=== PATIENT | female | born 1955 | race Asian ===

== ENCOUNTER 2021-11-15 20:45 | Emergency (ER) | payer OTHER ==
[~2021-11-15] VITALS: Ht 149.9 cm; Wt 52.2 kg
[2021-11-15 20:50] VITALS: BP_SYST 157
--- NOTE | 2021-11-15 21:30 | NUR ---
Patient ambulatory to bed 3 for evaluation and treatment
[2021-11-15] MEDS ORDERED: LIDOCAINE VISCOUS 2%, 15 ML UDC ONE (22:30)
[2021-11-15] MEDS ORDERED: BACITRACIN ZINC 15 GM TOPICAL OINTMENT TP ONE (22:30)
[2021-11-15] MEDS ORDERED: LIDOCAINE VISCOUS 2%, 15 ML UDC MM ONE (22:30)
[2021-11-15] MEDS ORDERED: OXYMETAZOLINE HCL 0.05% NASAL SPRAY NS PRN (22:30)
[2021-11-15] MEDS ORDERED: OXYMETAZOLINE HCL 0.05% NASAL SPRAY NS ONE (22:31)
[2021-11-15] MEDS ORDERED: BACITRACIN 1 GM OINT TP ONE (22:32)
[2021-11-15] MEDS ORDERED: SILVER NITRATE APPLICATOR 1 STICK STICK..EA. TP ONE (22:47)
[2021-11-15] MEDS ORDERED: AUG875 PO (23:04)
--- NOTE | 2021-11-15 23:45 | NUR ---
Patient given written and verbal discharge instructions and verbalizes understanding. ER MD discussed with patient the results and treatment provided. Patient in stable condition. ID arm band removed. IV catheter removed intact and dressing applied, no active bleeding. Rx of AUGMENTIN given. Patient educated on pain management and to follow up with PMD. Pain Scale . Opportunity for questions provided and answered. Medication side effect fact sheet provided.
[2021-11-16 00:44] VITALS: BP_SYST 128
== END 2021-11-15 23:44 | disposition home or self-care (01) ==
LOC: SED 20:45
DX: R04.0 Epistaxis (principal)
CPT/HCPCS: 30901; 99284; J2001

== ENCOUNTER 2021-11-18 19:42 | Emergency (ER) | payer OTHER ==
[~2021-11-18] VITALS: Ht 152.4 cm; Wt 63.5 kg
[~2021-11-18 19:42] MED LIST: AUG875 PO
[2021-11-18 19:55] VITALS: BP_SYST 138
--- NOTE | 2021-11-18 19:55 | NUR ---
ER Dr. Goff in triage examining patient.
--- NOTE | 2021-11-18 20:00 | NUR ---
Patent brought in complaining of rhino rocket removal to the left nostril that was placed on 11/15/21. Patient was placed on augmentin for 5 days. No bleeding noted at this time.
[2021-11-18] MEDS ORDERED: AUG875 PO (20:42)
[2021-11-18 21:05] VITALS: BP_SYST 138
--- NOTE | 2021-11-18 21:05 | NUR ---
Patient given written and verbal discharge instructions and verbalizes understanding. ER MD discussed with patient the results and treatment provided. Patient in stable condition. ID arm band removed. Rx of augmentin given. Patient educated on pain management and to follow up with PMD. Pain Scale 0/10 Opportunity for questions provided and answered. Medication side effect fact sheet provided.
== END 2021-11-18 21:05 | disposition home or self-care (01) ==
LOC: SED 19:42
DX: R04.0 Epistaxis (principal); Z48.00 Encounter for change or removal of nonsurgical wound dressing; Z79.899 Other long term (current) drug therapy
CPT/HCPCS: 99283

== ENCOUNTER 2022-09-05 20:52 | Inpatient (IN) | payer OTHER ==
[~2022-09-05] VITALS: Ht 154.9 cm; Wt 49.9 kg
[2022-09-05 21:47] VITALS: BP_SYST 130
[2022-09-05] MEDS ORDERED: NACL 0.9% 1,000 ML IV ONE ×2 (22:00→23:15)
[2022-09-05 22:31] LABS: HEMATOCRIT 36.9 % (36-48); HEMOGLOBIN 12.4 g/dL (12.0-16.0); MEAN CORPUSCULAR HEMOGLOBIN 31 pg (27-31); MEAN CORPUSCULAR HGB CONC 34 % (32-36); MEAN CORPUSCULAR VOLUME 91 fL (79.0-98.0); PLATELET COUNT (AUTO) 201 K/uL (130-430); RED BLOOD CELL COUNT(AUTO) 4.04 MIL/uL (4.2-6.2); RED CELL DISTRIBUTION WIDTH 12.6 % (9.0-15.0); WHITE BLOOD COUNT (AUTO) 14.2 K/uL (4.8-10.8)
[2022-09-05 22:46] LABS: ANION GAP 9 (5-15); CALCIUM 8.4 mg/dL (8.4-11.0); CHLORIDE 96 mmol/L (98-107); CREATININE 0.96 mg/dL (0.55-1.30); GFR AFRICAN AMERICAN 74 mL/min (>90); GLUCOSE 136 mg/dL (70-99); UREA NITROGEN, BLOOD 18 mg/dL (8-21)
[2022-09-05 22:58] LABS: ALANINE AMINOTRANSFERASE 32 U/L (12-78); ALBUMIN 3.2 g/dL (3.4-4.8); ASPARTATE AMINOTRANSFERASE 27 U/L (10-37)
[2022-09-05 23:35] LABS: BAND % (MANUAL) 28 % (0-6); BASOPHILS % (MANUAL) 0 % (0-2); EOSINOPHILS % (MANUAL) 0 % (0-7); LYMPHOCYTES % (MANUAL) 5 % (20-46); MONOCYTES % (MANUAL) 4 % (0-11)
[2022-09-05 23:37] LABS: PHOSPHORUS 4.3 mg/dL (2.7-4.5)
[2022-09-05 23:56] LABS: BILIRUBIN,URINE NEGATIVE (NEGATIVE); BLOOD, URINE 1+ (NEGATIVE); CLARITY/URINE CLOUDY (CLEAR); COLOR,URINE YELLOW (YELLOW); GLUCOSE,URINE NEGATIVE (NEGATIVE); KETONES,URINE NEGATIVE (NEGATIVE); LEUKOCYTE ESTERASE ,URINE 3+ (NEGATIVE); NITRITE, URINE POSITIVE (NEGATIVE); PH,URINE 6.5 (5.0-8.0); PROTEIN URINE 1+ (NEGATIVE); UROBILINOGEN,URINE 0.2 (0.2-1.0)
[2022-09-06] MEDS ORDERED: cefTRIAXone 1 GM in D5W 50 ML IV ONE (00:30)
[2022-09-06] MEDS ORDERED: cefTRIAXone 1 GM VIAL ONE (01:15)
[2022-09-06] MEDS ORDERED: ONDANSETRON HCL 4 MG/2 ML VIAL IVP ONE (02:15)
[2022-09-06] MEDS ORDERED: hydrALAZINE HCL 20 MG/ML VIAL IVP ONE (02:15)
[2022-09-06] MEDS ORDERED: CLOP75TA32 PO (02:29)
[2022-09-06] MEDS ORDERED: HYDR12.55 PO (02:29)
[2022-09-06] MEDS ORDERED: NOR10 PO (02:29)
[2022-09-06] MEDS ORDERED: LIP20 PO (02:29)
[2022-09-06] MEDS ORDERED: OLME20TA74 PO (02:29)
[2022-09-06 04:04] VITALS: BP_SYST 128
[2022-09-06 08:00] VITALS: BP_SYST 115
[2022-09-06] MEDS ORDERED: HYDROcodone/ACETAMIN 5-325 MG TAB (NORCO/ VICODIN) PO PRN (10:45)
[2022-09-06] MEDS ORDERED: NALOXONE HCL 0.4 MG/ML AMP (NARCAN) IVP PRN ×2 (10:45)
[2022-09-06] MEDS ORDERED: OLMESARTAN MEDOXOMIL 20 MG TABLET PO SCH (10:45)
[2022-09-06] MEDS ORDERED: ONDANSETRON HCL 4 MG/2 ML VIAL IVP PRN (10:45)
[2022-09-06] MEDS ORDERED: LORazepam 2 MG/ML VIAL IVP PRN (10:45)
[2022-09-06] MEDS ORDERED: HYDROcodone/ACETAMIN 10-325 MG TAB PO PRN (10:45)
[2022-09-06] MEDS ORDERED: NON-FORMULARY MEDICATION (Hydrochlorothiazide 12.5 MG) PO SCH (10:45)
[2022-09-06] MEDS ORDERED: CLOPIDOGREL BISULFATE 75 MG TABLET PO ONE (11:00)
[2022-09-06] MEDS ORDERED: amLODIPine BESYLATE 10 MG TABLET PO ONE (11:00)
[2022-09-06] MEDS ORDERED: ACETAMINOPHEN 325 MG TABLET PO PRN (11:00)
[2022-09-06 11:07] LABS: BASOPHILS % (AUTO) 0.1 % (0.0-2.0); HEMATOCRIT 36.4 % (36-48); HEMOGLOBIN 12.2 g/dL (12.0-16.0); LYMPHOCYTES # (AUTO) 0.7 K/uL (1.0-5.5); LYMPHOCYTES % (AUTO) 4.6 % (20.5-51.5); MEAN CORPUSCULAR HEMOGLOBIN 31 pg (27-31); MEAN CORPUSCULAR HGB CONC 34 % (32-36); MEAN CORPUSCULAR VOLUME 91 fL (79.0-98.0); MONOCYTES # (AUTO) 0.7 K/uL (0.0-1.0); NEUTROPHILS # (AUTO) 13.5 K/uL (1.8-7.7); NEUTROPHILS % (AUTO) 90.3 % (40.0-70.0); PLATELET COUNT (AUTO) 195 K/uL (130-430); RED BLOOD CELL COUNT(AUTO) 3.98 MIL/uL (4.2-6.2); RED CELL DISTRIBUTION WIDTH 12.3 % (9.0-15.0); WHITE BLOOD COUNT (AUTO) 14.9 K/uL (4.8-10.8)
[2022-09-06 11:13] LABS: CALCIUM 8.2 mg/dL (8.4-11.0); CREATININE 1.32 mg/dL (0.55-1.30)
[2022-09-06 11:34] VITALS: BP_SYST 99
[2022-09-06] MEDS: cefTRIAXone 1 GM IVPB PREMIX 50 ML IV SCH (12:26)
[2022-09-06] MEDS: NORMAL SALINE 5 ML DISP.SYRIN IVF SCH ×2 (13:12→20:15)
[2022-09-06] MEDS ORDERED: NORMAL SALINE 5 ML DISP.SYRIN IVF SCH (14:00)
[2022-09-06 17:03] VITALS: BP_SYST 130
[2022-09-06 20:00] VITALS: BP_SYST 121
[2022-09-06] MEDS: ATORVASTATIN 20 MG TABLET PO SCH (20:14)
[2022-09-07] VITALS (7 sets, daily range): BP systolic 100–145
[2022-09-07] MEDS: NORMAL SALINE 5 ML DISP.SYRIN IVF SCH ×3 (06:00→22:00)
[2022-09-07 07:37] LABS: BASOPHILS % (AUTO) 0.1 % (0.0-2.0); HEMATOCRIT 35.9 % (36-48); HEMOGLOBIN 11.9 g/dL (12.0-16.0); LYMPHOCYTES # (AUTO) 0.8 K/uL (1.0-5.5); LYMPHOCYTES % (AUTO) 5.7 % (20.5-51.5); MEAN CORPUSCULAR HEMOGLOBIN 30 pg (27-31); MEAN CORPUSCULAR HGB CONC 33 % (32-36); MEAN CORPUSCULAR VOLUME 91 fL (79.0-98.0); MONOCYTES % (AUTO) 6.8 % (1.7-9.3); NEUTROPHILS # (AUTO) 12.4 K/uL (1.8-7.7); NEUTROPHILS % (AUTO) 87.4 % (40.0-70.0); PLATELET COUNT (AUTO) 185 K/uL (130-430); RED BLOOD CELL COUNT(AUTO) 3.95 MIL/uL (4.2-6.2); RED CELL DISTRIBUTION WIDTH 12.6 % (9.0-15.0); WHITE BLOOD COUNT (AUTO) 14.2 K/uL (4.8-10.8)
[2022-09-07 07:56] LABS: ALBUMIN 2.5 g/dL (3.4-4.8); C-REACTIVE PROTEIN QUANT 35.5 mg/dL (0-0.5); CALCIUM 8.1 mg/dL (8.4-11.0); CREATININE 0.95 mg/dL (0.55-1.30); PHOSPHORUS 2.6 mg/dL (2.7-4.5); TOTAL BILIRUBIN 0.6 mg/dL (0.0-1.0)
[2022-09-07 08:52] LABS: ERYTHROCYTE SEDIMENTATION RATE 74 MM/HR (0-20)
[2022-09-07] MEDS: HYDROCHLOROTHIAZIDE 12.5 MG CAPSULE (HCTZ) PO SCH (09:01)
[2022-09-07] MEDS: amLODIPine BESYLATE 10 MG TABLET PO SCH (09:01)
[2022-09-07] MEDS: LOSARTAN POTASSIUM 50 MG TABLET (COZAAR) PO SCH (09:02)
[2022-09-07] MEDS: CLOPIDOGREL BISULFATE 75 MG TABLET PO SCH (09:02)
[2022-09-07] MEDS ORDERED: POTASSIUM CHLORIDE 20 MEQ TAB.PRT.SR PO ONE (09:45)
[2022-09-07] MEDS ORDERED: NA PHOS 15 MM in NS 250 ML IV ONE (11:00)
[2022-09-07] MEDS: cefTRIAXone 1 GM IVPB PREMIX 50 ML IV SCH (12:25)
[2022-09-07] MEDS: ATORVASTATIN 20 MG TABLET PO SCH (20:39)
[2022-09-08] VITALS: BP_SYST 130
[2022-09-08 04:00] VITALS: BP_SYST 124
[2022-09-08 05:39] LABS: BASOPHILS % (AUTO) 0.2 % (0.0-2.0); EOSINOPHILS % (AUTO) 0.4 % (0.0-4.0); HEMATOCRIT 33.7 % (36-48); HEMOGLOBIN 11.4 g/dL (12.0-16.0); LYMPHOCYTES # (AUTO) 1.2 K/uL (1.0-5.5); MEAN CORPUSCULAR HEMOGLOBIN 31 pg (27-31); MEAN CORPUSCULAR HGB CONC 34 % (32-36); MEAN CORPUSCULAR VOLUME 91 fL (79.0-98.0); MONOCYTES % (AUTO) 10.6 % (1.7-9.3); NEUTROPHILS # (AUTO) 7.4 K/uL (1.8-7.7); NEUTROPHILS % (AUTO) 76.8 % (40.0-70.0); PLATELET COUNT (AUTO) 184 K/uL (130-430); RED BLOOD CELL COUNT(AUTO) 3.72 MIL/uL (4.2-6.2); RED CELL DISTRIBUTION WIDTH 12.6 % (9.0-15.0); WHITE BLOOD COUNT (AUTO) 9.7 K/uL (4.8-10.8)
[2022-09-08 06:32] LABS: CREATININE 0.86 mg/dL (0.55-1.30)
[2022-09-08] MEDS: NORMAL SALINE 5 ML DISP.SYRIN IVF SCH ×3 (07:03→21:16)
[2022-09-08 07:31] LABS: ERYTHROCYTE SEDIMENTATION RATE 45 MM/HR (0-20)
[2022-09-08 08:00] VITALS: BP_SYST 138
[2022-09-08 08:36] LABS: C-REACTIVE PROTEIN QUANT 17.6 mg/dL (0-0.5)
[2022-09-08] MEDS: LOSARTAN POTASSIUM 50 MG TABLET (COZAAR) PO SCH (09:00)
[2022-09-08] MEDS: CLOPIDOGREL BISULFATE 75 MG TABLET PO SCH (09:00)
[2022-09-08] MEDS: amLODIPine BESYLATE 10 MG TABLET PO SCH (09:00)
[2022-09-08] MEDS ORDERED: POTASSIUM CHLORIDE 20 MEQ TAB.PRT.SR PO ONE (10:30)
[2022-09-08] MEDS: ACETAMINOPHEN 325 MG TABLET PO PRN ×2 (10:35→12:34)
[2022-09-08] MEDS: HYDROCHLOROTHIAZIDE 12.5 MG CAPSULE (HCTZ) PO SCH (10:39)
[2022-09-08 11:05] VITALS: BP_SYST 135
[2022-09-08] MEDS: cefTRIAXone 1 GM IVPB PREMIX 50 ML IV SCH (12:35)
[2022-09-08 17:10] VITALS: BP_SYST 126
[2022-09-08 20:00] VITALS: BP_SYST 151
[2022-09-08] MEDS: ATORVASTATIN 20 MG TABLET PO SCH (21:12)
[2022-09-09] VITALS: BP_SYST 140
[2022-09-09 06:05] LABS: C-REACTIVE PROTEIN QUANT 11.7 mg/dL (0-0.5); CALCIUM 8.3 mg/dL (8.4-11.0); CREATININE 0.84 mg/dL (0.55-1.30)
[2022-09-09 06:06] LABS: BASOPHILS % (AUTO) 0.2 % (0.0-2.0); EOSINOPHILS # (AUTO) 0.1 K/uL (0.0-0.4); EOSINOPHILS % (AUTO) 0.9 % (0.0-4.0); HEMATOCRIT 35.3 % (36-48); HEMOGLOBIN 11.7 g/dL (12.0-16.0); LYMPHOCYTES # (AUTO) 1.2 K/uL (1.0-5.5); LYMPHOCYTES % (AUTO) 18.8 % (20.5-51.5); MEAN CORPUSCULAR HEMOGLOBIN 30 pg (27-31); MEAN CORPUSCULAR HGB CONC 33 % (32-36); MEAN CORPUSCULAR VOLUME 91 fL (79.0-98.0); MONOCYTES # (AUTO) 0.9 K/uL (0.0-1.0); MONOCYTES % (AUTO) 13.1 % (1.7-9.3); NEUTROPHILS # (AUTO) 4.4 K/uL (1.8-7.7); PLATELET COUNT (AUTO) 196 K/uL (130-430); RED BLOOD CELL COUNT(AUTO) 3.87 MIL/uL (4.2-6.2); RED CELL DISTRIBUTION WIDTH 12.6 % (9.0-15.0); WHITE BLOOD COUNT (AUTO) 6.6 K/uL (4.8-10.8)
[2022-09-09] MEDS: NORMAL SALINE 5 ML DISP.SYRIN IVF SCH ×3 (06:53→22:15)
[2022-09-09 08:00] VITALS: BP_SYST 138
[2022-09-09 08:15] LABS: ERYTHROCYTE SEDIMENTATION RATE 59 MM/HR (0-20)
[2022-09-09] MEDS: HYDROCHLOROTHIAZIDE 12.5 MG CAPSULE (HCTZ) PO SCH (08:37)
[2022-09-09] MEDS: LOSARTAN POTASSIUM 50 MG TABLET (COZAAR) PO SCH (08:37)
[2022-09-09] MEDS: CLOPIDOGREL BISULFATE 75 MG TABLET PO SCH (08:37)
[2022-09-09] MEDS: amLODIPine BESYLATE 10 MG TABLET PO SCH (08:38)
[2022-09-09 11:31] VITALS: BP_SYST 131
[2022-09-09] MEDS: cefTRIAXone 1 GM IVPB PREMIX 50 ML IV SCH (12:08)
[2022-09-09 15:06] VITALS: BP_SYST 140
[2022-09-09 20:00] VITALS: BP_SYST 148
[2022-09-09] MEDS: ATORVASTATIN 20 MG TABLET PO SCH (21:39)
[2022-09-10] VITALS: BP_SYST 137
[2022-09-10 04:30] VITALS: BP_SYST 145
[2022-09-10 05:28] LABS: BASOPHILS % (AUTO) 0.2 % (0.0-2.0); EOSINOPHILS # (AUTO) 0.1 K/uL (0.0-0.4); EOSINOPHILS % (AUTO) 1.7 % (0.0-4.0); HEMATOCRIT 34.9 % (36-48); HEMOGLOBIN 11.7 g/dL (12.0-16.0); LYMPHOCYTES # (AUTO) 1.8 K/uL (1.0-5.5); LYMPHOCYTES % (AUTO) 26.7 % (20.5-51.5); MEAN CORPUSCULAR HEMOGLOBIN 30 pg (27-31); MEAN CORPUSCULAR HGB CONC 34 % (32-36); MEAN CORPUSCULAR VOLUME 91 fL (79.0-98.0); MONOCYTES # (AUTO) 0.9 K/uL (0.0-1.0); MONOCYTES % (AUTO) 13.2 % (1.7-9.3); NEUTROPHILS % (AUTO) 58.2 % (40.0-70.0); PLATELET COUNT (AUTO) 235 K/uL (130-430); RED BLOOD CELL COUNT(AUTO) 3.86 MIL/uL (4.2-6.2); RED CELL DISTRIBUTION WIDTH 12.6 % (9.0-15.0); WHITE BLOOD COUNT (AUTO) 6.9 K/uL (4.8-10.8)
[2022-09-10] MEDS: NORMAL SALINE 5 ML DISP.SYRIN IVF SCH ×3 (05:41→20:23)
[2022-09-10 05:51] LABS: C-REACTIVE PROTEIN QUANT 6.9 mg/dL (0-0.5); CALCIUM 8.6 mg/dL (8.4-11.0); CREATININE 0.84 mg/dL (0.55-1.30)
[2022-09-10 07:51] LABS: ERYTHROCYTE SEDIMENTATION RATE 61 MM/HR (0-20)
[2022-09-10 08:00] VITALS: BP_SYST 133
[2022-09-10] MEDS: HYDROCHLOROTHIAZIDE 12.5 MG CAPSULE (HCTZ) PO SCH (08:39)
[2022-09-10] MEDS: CLOPIDOGREL BISULFATE 75 MG TABLET PO SCH (08:39)
[2022-09-10] MEDS: LOSARTAN POTASSIUM 50 MG TABLET (COZAAR) PO SCH (08:40)
[2022-09-10] MEDS: amLODIPine BESYLATE 10 MG TABLET PO SCH (08:40)
[2022-09-10 11:21] VITALS: BP_SYST 127
[2022-09-10] MEDS: cefTRIAXone 1 GM IVPB PREMIX 50 ML IV SCH (12:55)
[2022-09-10 15:26] VITALS: BP_SYST 111
[2022-09-10 20:00] VITALS: BP_SYST 128
[2022-09-10] MEDS: ATORVASTATIN 20 MG TABLET PO SCH (20:23)
[2022-09-11 00:06] VITALS: BP_SYST 155
[2022-09-11] MEDS: NORMAL SALINE 5 ML DISP.SYRIN IVF SCH ×2 (05:21→13:41)
[2022-09-11 05:36] LABS: BASOPHILS # (AUTO) 0.1 K/uL (0.0-0.2); BASOPHILS % (AUTO) 0.7 % (0.0-2.0); EOSINOPHILS # (AUTO) 0.1 K/uL (0.0-0.4); EOSINOPHILS % (AUTO) 1.9 % (0.0-4.0); HEMATOCRIT 34.7 % (36-48); HEMOGLOBIN 11.8 g/dL (12.0-16.0); LYMPHOCYTES # (AUTO) 1.9 K/uL (1.0-5.5); LYMPHOCYTES % (AUTO) 26.1 % (20.5-51.5); MEAN CORPUSCULAR HEMOGLOBIN 31 pg (27-31); MEAN CORPUSCULAR HGB CONC 34 % (32-36); MEAN CORPUSCULAR VOLUME 90 fL (79.0-98.0); MONOCYTES # (AUTO) 0.8 K/uL (0.0-1.0); MONOCYTES % (AUTO) 11.4 % (1.7-9.3); NEUTROPHILS # (AUTO) 4.4 K/uL (1.8-7.7); NEUTROPHILS % (AUTO) 59.9 % (40.0-70.0); PLATELET COUNT (AUTO) 265 K/uL (130-430); RED BLOOD CELL COUNT(AUTO) 3.84 MIL/uL (4.2-6.2); RED CELL DISTRIBUTION WIDTH 12.2 % (9.0-15.0); WHITE BLOOD COUNT (AUTO) 7.3 K/uL (4.8-10.8)
[2022-09-11 05:51] LABS: C-REACTIVE PROTEIN QUANT 4.3 mg/dL (0-0.5); CALCIUM 8.6 mg/dL (8.4-11.0); CREATININE 0.82 mg/dL (0.55-1.30)
[2022-09-11 08:00] VITALS: BP_SYST 138
[2022-09-11 08:11] LABS: ERYTHROCYTE SEDIMENTATION RATE 76 MM/HR (0-20)
[2022-09-11] MEDS ORDERED: SULF1TAB48 PO (09:49)
[2022-09-11] MEDS: HYDROCHLOROTHIAZIDE 12.5 MG CAPSULE (HCTZ) PO SCH (10:13)
[2022-09-11] MEDS: amLODIPine BESYLATE 10 MG TABLET PO SCH (10:14)
[2022-09-11] MEDS: LOSARTAN POTASSIUM 50 MG TABLET (COZAAR) PO SCH (10:15)
[2022-09-11] MEDS: CLOPIDOGREL BISULFATE 75 MG TABLET PO SCH (10:15)
[2022-09-11 11:21] VITALS: BP_SYST 132
[2022-09-11] MEDS: cefTRIAXone 1 GM IVPB PREMIX 50 ML IV SCH (11:42)
[2022-09-11 12:58] VITALS: BP_SYST 132
[2022-09-11 15:22] VITALS: BP_SYST 109
== END 2022-09-11 16:00 | disposition home health service (06) | DRG 871 ==
LOC: SED 20:52 → STU 09-06 02:35
PROVIDERS: ADMIT Preventive Medicine Preventive Medicine/Occupational Environmental Medicine; ATTEND Preventive Medicine Preventive Medicine/Occupational Environmental Medicine
DX: A41.51 Sepsis due to Escherichia coli [E. coli] (principal); E43 Unspecified severe protein-calorie malnutrition; E87.1 Hypo-osmolality and hyponatremia; N17.9 Acute kidney failure, unspecified; N10 Acute pyelonephritis; D64.9 Anemia, unspecified; E78.5 Hyperlipidemia, unspecified; E83.39 Other disorders of phosphorus metabolism; E83.51 Hypocalcemia; E83.52 Hypercalcemia; E87.6 Hypokalemia; E88.09 Other disorders of plasma-protein metabolism, not elsewhere classified; B96.20 Unspecified Escherichia coli [E. coli] as the cause of diseases classified elsewhere; I65.23 Occlusion and stenosis of bilateral carotid arteries; Z68.20 Body mass index [BMI] 20.0-20.9, adult; I11.9 Hypertensive heart disease without heart failure; R53.81 Other malaise; Z20.822 Contact with and (suspected) exposure to COVID-19; Z86.16 Personal history of COVID-19; Z86.73 Personal history of transient ischemic attack (TIA), and cerebral infarction without residual deficits
CPT/HCPCS: 36415; 70450-TC; 70490; 70551; 71045; 76376; 80048; 80053; 81000; 83605; 83735; 83880; 84100; 84484; 85007; 85025; 85027; 85651-TC; 86140; 87040; 87081; 87086; 93005; 93306; 93880; 95816; 96361; 96365; 97110-GP; 97116-GP; 97530-GP; 99291; G0378; J0360; J0696; J2405; J7050